=== PATIENT | female | born 1940 | race Caucasian/White ===

== ENCOUNTER 2021-05-16 16:28 | Emergency (ER) | payer OTHER, SELFPAY ==
--- NOTE | 2021-05-16 16:32 | ED.URI ---
HPI - URI/Sore Throat General Chief Complaint: Upper Respiratory Infection Stated Complaint: Congestion Time Seen by Provider: 05/16/21 16:32 Source: patient and RN notes reviewed History of Present Illness HPI Narrative: Patient is an 81-year-old female who presents the urgent care with complaints of head congestion, ear fullness, dry throat and fatigue. Patient states that 2 weeks ago she had a dry cough which is since resolved. Patient states that she has been having a lot of issues going on in her family with her son dying in a sudden of her brother just this past week. Patient states she has not been sleeping well. She has been using NyQuil and Stacey-Zillah plus. Denies any chest pain, shortness of breath or wheezing. Patient does have a history of emphysema. Denies of any known fevers. No other acute complaints. No acute distress noted. Patient aware of the plan of care. Some parts of this dictation were generated by voice recognition software and may contain typographical and/or grammatical inaccuracies. Related Data Home Medications Medication Instructions Recorded Confirmed albuterol sulfate INHALATION 05/16/21 hydrocodone-acetaminophen tablet 05/16/21 insulin glargine [Lantus Solostar SUBCUT 05/16/21 U-100 Insulin] latanoprost drp 05/16/21 losartan 100 mg PO DAILY 05/16/21 05/16/21 meloxicam 7.5 mg PO DAILY 05/16/21 05/16/21 nifedipine 60 mg PO DAILY 05/16/21 05/16/21 omeprazole 20 mg PO DAILY 05/16/21 05/16/21 simvastatin 40 mg PO DAILY 05/16/21 05/16/21 Allergies Allergy/AdvReac Type Severity Reaction Status Date / Time Sulfa (Sulfonamide Allergy Rash Verified 05/16/21 16:57 Antibiotics) metformin AdvReac Diarrhea Verified 05/16/21 16:58 Review of Systems Review of Systems: CONSTITUTIONAL: Denies fever, chills, or sweats. EYES: Denies visual changes, redness, or discharge. ENT: Reports of postnasal drainage and head congestion with bilateral ear fullness CARDIOVASCULAR: Denies chest pain, palpitations, or edema. RESPIRATORY: Denies cough or dyspnea. GASTROINTESTINAL: Denies abdominal pain, nausea, vomiting, or diarrhea. GENITOURINARY: Denies dysuria or hematuria. SKIN: Denies rash or itching. MUSCULOSKELETAL: Denies back pain, joint pain, or myalgia. NEUROLOGIC: Denies headache, numbness, or weakness. All other systems reviewed are negative, except as documented in HPI. PMFSH Comments At the time of my signature, I reviewed and agree with the nursing past medical, surgical, social, and family history. There is no relevant family history pertinent to the patient complaint. Exam Narrative: GENERAL: This is a well-nourished, well-developed patient, in no apparent distress. HEAD: normocephalic, atraumatic. EYES: PERRL. Sclera clear/white. Vision is grossly intact. EARS: External ears normal, auditory canals clear and without drainage, mild fluid noted behind bilateral TMs without otitis. TMs normal without perforation. Hearing grossly intact. NOSE: External nose normal with no obvious nasal discharge, nares without redness, clear rhinorrhea. THROAT: Mucous membranes moist, posterior pharynx clear. Mild postnasal drainage NECK: Neck supple CARDIOVASCULAR: Regular rate and rhythm RESPIRATORY: Slight crackles throughout without wheezes SKIN: warm, intact with no suspicious lesions or rash, good texture and turgor. NEURO: awake, alert, and oriented to person, place and time. There were no obvious focal neurologic abnormalities. EXTREMITIES: No clubbing, cyanosis, or edema. Course Course Level of Care: Express Care Visit Vital Signs Vital signs: Vital Signs Temperature 98.3 F 05/16/21 16:40 Pulse Rate 97 05/16/21 16:40 Respiratory Rate 20 05/16/21 16:40 Blood Pressure 143/65 H 05/16/21 16:40 Pulse Oximetry 98 05/16/21 16:40 Temperature 98.3 F 05/16/21 16:40 Pulse Rate 97 05/16/21 16:40 Respiratory Rate 20 05/16/21 16:40 Blood Pressure 143/65 H 03/0
[2021-05-16 16:40] VITALS: BP 143/65; PULSE 97; RESP 20; TEMP 36.8; O2SAT 98
== END 2021-05-16 17:05 | disposition home or self-care (01) ==
PROVIDERS: Emergency Provider Nurse Practitioner Family; PCP Family Medicine
DX: J32.9 Chronic sinusitis, unspecified (principal); E78.00 Pure hypercholesterolemia, unspecified; I10 Essential (primary) hypertension; N80.9 Endometriosis, unspecified; J43.9 Emphysema, unspecified; K21.9 Gastro-esophageal reflux disease without esophagitis; M19.90 Unspecified osteoarthritis, unspecified site; Z96.652 Presence of left artificial knee joint; E11.9 Type 2 diabetes mellitus without complications; F41.9 Anxiety disorder, unspecified; F32.A Depression, unspecified; Z85.3 Personal history of malignant neoplasm of breast; Z92.21 Personal history of antineoplastic chemotherapy; Z92.3 Personal history of irradiation
CPT/HCPCS: 99213; G0463